=== PATIENT | female | born 1990 | race Caucasian/White ===

== ENCOUNTER 2018-04-07 17:03 | Emergency (ER) | payer SELFPAY, MEDICAID ==
[2018-04-07 17:33] LABS: BILIRUBIN,URINE NEGATIVE (NEG); CLARITY,URINE CLEAR; COLOR,URINE YELLOW; GLUCOSE,URINE NEGATIVE (NEG); NITRITE,URINE NEGATIVE (NEG); PH,URINE 6.5; PROTEIN,URINE NEGATIVE (NEG-TRACE)
[2018-04-07 17:47] LABS: BACTERIA,URINE MOD /HPF (0-FEW); SQUAMOUS EPITHELIAL CELL,UR MANY /LPF
[2018-04-07] MEDS: cefTRIAXone IM 250 MG VIAL IM (17:59)
[2018-04-07] MEDS: AZITHROMYCIN 250 MG TABLET. PO (17:59)
[2018-04-07] MEDS: metroNIDAZOLE 500 MG TABLET PO (17:59)
== END 2018-04-07 18:05 | disposition home or self-care (01) ==
LOC: ER 17:03
DX: N39.0 Urinary tract infection, site not specified (principal); F41.9 Anxiety disorder, unspecified
CPT/HCPCS: 81001; 87491; 87591; 96372; 99284; J0696; Q0144

== ENCOUNTER 2018-05-25 22:40 | Emergency (ER) | payer SELFPAY ==
[2018-05-25 23:04] LABS: URINE HCG POC HCG NEGATIVE (Negative)
[2018-05-25 23:15] LABS: BILIRUBIN,URINE NEGATIVE (NEG); CLARITY,URINE CLEAR; COLOR,URINE YELLOW; GLUCOSE,URINE NEGATIVE (NEG); NITRITE,URINE NEGATIVE (NEG); PROTEIN,URINE NEGATIVE (NEG-TRACE); UROBILINOGEN,URINE 0.2 mg/dL (0.2 mg/dL)
[2018-05-25 23:23] LABS: BACTERIA,URINE FEW /HPF (0-FEW); SQUAMOUS EPITHELIAL CELL,UR FEW /LPF
== END 2018-05-25 23:59 | disposition home or self-care (01) ==
LOC: ER 23:59
DX: N39.0 Urinary tract infection, site not specified (principal); M54.5 Low back pain; F41.9 Anxiety disorder, unspecified; Z98.890 Other specified postprocedural states
CPT/HCPCS: 81001; 81025; 87086; 99284

== ENCOUNTER 2018-09-01 18:00 | Emergency (ER) | payer SELFPAY ==
[~2018-09-01] VITALS: Ht 162.6 cm; Wt 68.2 kg
[~2018-09-01 18:00] MED LIST: ACET325T9 PO; CYCL10TA2 PO; DICL50TA4 PO; DIPH25CA58 PO; DOXY100C2 PO; PNV1TABL25 PO; SULF1TAB24 PO
[2018-09-01 18:10] VITALS: BP 132/74
[2018-09-01] MEDS ORDERED: POLY10DR OD (18:25)
[2018-09-01] MEDS ORDERED: CEPH-264 PO (18:25)
[2018-09-01] MEDS ORDERED: IBUP-1060 PO (18:25)
[2018-09-01] MEDS ORDERED: HYDR-971 PO (18:25)
[2018-09-01] MEDS ORDERED: FLUORESCEIN OPHTH TEST STRIP. OD ONE (18:30)
[2018-09-01] MEDS ORDERED: TETRACAINE 0.5% OPHTH SOLUTION 4ML BOTTLE. OD ONE (18:30)
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
== END 2018-09-01 18:45 | disposition home or self-care (01) ==
LOC: ER 18:00
DX: H00.014 Hordeolum externum left upper eyelid (principal); H00.011 Hordeolum externum right upper eyelid; F41.9 Anxiety disorder, unspecified; H10.89 Other conjunctivitis
CPT/HCPCS: 99283

== ENCOUNTER 2018-10-10 15:41 | Emergency (ER) | payer SELFPAY ==
[~2018-10-10] VITALS: Ht 162.6 cm; Wt 69.4 kg
[~2018-10-10 15:41] MED LIST changes: +CEPH-264 PO; +HYDR-3164 PO; +IBUP-1060 PO; +POLY10DR OD
[2018-10-10 16:43] VITALS: BP 140/62
[2018-10-10] MEDS ORDERED: PENI500T PO (16:59)
[2018-10-10] MEDS ORDERED: NAPR-514 PO (16:59)
[2018-10-10] MEDS ORDERED: CHLO15MO2 PO (16:59)
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
== END 2018-10-10 17:11 | disposition home or self-care (01) ==
LOC: ER 15:41
DX: K04.7 Periapical abscess without sinus (principal); K05.10 Chronic gingivitis, plaque induced
CPT/HCPCS: 99283

== ENCOUNTER 2018-12-27 04:47 | Emergency (ER) | payer OTHER ==
[~2018-12-27] VITALS: Ht 162.6 cm; Wt 65.8 kg
[~2018-12-27 04:47] MED LIST changes: +CHLO15MO2 PO; +NAPR-514 PO; +PENI500T PO
[2018-12-27] MEDS ORDERED: AMOX1TAB61 PO (05:17)
[2018-12-27] MEDS ORDERED: CHLO15MO2 PO (05:17)
[2018-12-27] MEDS ORDERED: NAPR-514 PO (05:17)
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
[2018-12-27] MEDS: BUPIVAC MPF-EPI 0.5%-1:200000 30 ML VIAL. INJ ONE ×2 (05:30→05:45)
[2018-12-27] MEDS ORDERED: AMOXICILLIN/K CLAV 875/125MG TABLET. PO ONE (05:30)
[2018-12-27] MEDS ORDERED: DEXAMETHASONE 4 MG TABLET PO ONE (05:30)
[2018-12-27 06:00] VITALS: BP 160/85
== END 2018-12-27 06:05 | disposition home or self-care (01) ==
LOC: ER 04:47
DX: K02.9 Dental caries, unspecified (principal); F41.9 Anxiety disorder, unspecified; F32.9 Major depressive disorder, single episode, unspecified; F17.210 Nicotine dependence, cigarettes, uncomplicated; Z90.81 Acquired absence of spleen
CPT/HCPCS: 64400; 99284; J3490; J8540

== ENCOUNTER 2019-11-12 21:27 | Emergency (ER) | payer OTHER ==
[~2019-11-12] VITALS: Ht 162.6 cm; Wt 61.8 kg
[~2019-11-12 21:27] MED LIST changes: +AMOX1TAB61 PO
[2019-11-12 21:44] VITALS: BP 167/96
[2019-11-12] MEDS ORDERED: PENI500T PO (22:32)
[2019-11-12] MEDS ORDERED: NAPR-514 PO (22:32)
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
[2019-11-12] MEDS ORDERED: HYDROcodone/APAP 5/325MG 1 TAB TABLET PO ONE (23:00)
== END 2019-11-12 22:52 | disposition home or self-care (01) ==
LOC: ER 21:27
DX: K04.7 Periapical abscess without sinus (principal); K05.10 Chronic gingivitis, plaque induced
CPT/HCPCS: 99283

== ENCOUNTER 2020-12-24 14:08 | Emergency (ER) | payer OTHER ==
[~2020-12-24] VITALS: Ht 162.6 cm; Wt 55.0 kg
[2020-12-24 14:39] LABS: BILIRUBIN,URINE SMALL (NEG); CLARITY,URINE CLOUDY; COLOR,URINE AMBER; NITRITE,URINE NEGATIVE (NEG); PH,URINE 5.5 (<5.0-8.0); PROTEIN,URINE 30 mg/dL (NEG-TRACE)
[2020-12-24 14:50] LABS: BACTERIA,URINE 0 /HPF (0-FEW); RBC,URINE 0 /HPF (0-2)
[2020-12-24] MEDS ORDERED: NITR100C62 PO (15:08)
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
[2020-12-24 15:16] VITALS: BP 115/56
== END 2020-12-24 15:23 | disposition home or self-care (01) ==
LOC: ER 14:08
DX: N30.00 Acute cystitis without hematuria (principal); F17.200 Nicotine dependence, unspecified, uncomplicated
CPT/HCPCS: 81001; 81025; 87086; 99283

== ENCOUNTER 2021-02-02 07:22 | Emergency (ER) | payer MEDICAID, OTHER ==
[~2021-02-02] VITALS: Ht 162.6 cm; Wt 68.2 kg
[~2021-02-02 07:22] MED LIST changes: +NITR100C62 PO
[2021-02-02 07:35] VITALS: BP 136/80
[2021-02-02] MEDS ORDERED: ONDANSETRON PF 4 MG/2 ML VIAL. IVP ONE (08:00)
[2021-02-02] MEDS: oxyCODONE/APAP 5/325 1 TAB TABLET PO ONE (08:55)
[2021-02-02 09:18] LABS: BARBITURATES NEG (NEG); BENZODIAZEPINES NEG (NEG); CANNABINOIDS NEG (NEG); COCAINE NEG (NEG); METHADONE NEG (NEG); OPIATES NEG (NEG); PHENCYCLIDINE NEG (NEG)
[2021-02-02 09:19] LABS: AMPHETAMINE/METHAMPHETAMINE POS (NEG)
[2021-02-02] MEDS ORDERED: CLIN300C9 PO (09:28)
[2021-02-02] MEDS ORDERED: IBUP-1060 PO (09:28)
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
[2021-02-02] MEDS ORDERED: BACITRACIN TOPICAL OINT PACKET. TP ONE (09:49)
== END 2021-02-02 09:55 | disposition home or self-care (01) ==
LOC: ER 07:22
DX: L03.114 Cellulitis of left upper limb (principal); F17.200 Nicotine dependence, unspecified, uncomplicated; F15.10 Other stimulant abuse, uncomplicated; F12.10 Cannabis abuse, uncomplicated; Z88.0 Allergy status to penicillin
CPT/HCPCS: 80307; 99283